=== PATIENT | female | born 1980 | race Caucasian/White ===

== ENCOUNTER → 2022-09-15 10:34 | Outpatient (CLI) | payer OTHER, SELFPAY ==
--- NOTE | ~2022-09-15 | MM_ITS ---
EXAMINATION: MM screening elli BI w estella HISTORY: Screening TECHNIQUE: Craniocaudal and mediolateral oblique 3-D tomosynthesis images were obtained and synthetic 2-D images were generated. CAD analysis was submitted and interpreted. COMPARISON: 07/27/2019 BREAST PARENCHYMAL COMPOSITION: The breasts are extremely dense, which lowers the sensitivity of mamm ography FINDINGS: There is a mass in the upper central aspect of the right breast near the areola. The left b reast is stable without evidence for malignancy. IMPRESSION: 1. Mass in the upper central right breast anteriorly near the nipple. 2. Additional spot compression and mediolateral views with possible follow-up breast ultrasound recom mended. BI-RADS CATEGORY 0 - INCOMPLETE STUDY, NEED ADDITIONAL IMAGING EVALUATION. Reviewed, dictated and finalized at location A. EMS M[facility] IMPRESSION: 1. Mass in the upper central right breast anteriorly near the nipple. 2. Additional spot compression and mediolateral views with possible follow-up b reast ultrasound recommended. BI-RADS CATEGORY 0 - INCOMPLETE STUDY, NEED ADDITIONAL IMAGING EVALUATION.
== END ==
PROVIDERS: PCP Obstetrics & Gynecology; Visit Provider Obstetrics & Gynecology
DX: Z12.31 Encounter for screening mammogram for malignant neoplasm of breast (principal); R92.8 Other abnormal and inconclusive findings on diagnostic imaging of breast
CPT/HCPCS: 77063; 77067

== ENCOUNTER 2022-10-03 07:26 | Outpatient (CLI) | payer OTHER, SELFPAY ==
--- NOTE | ~2022-10-03 | MMUS_ITS ---
EXAMINATION: MM diagnostic elli RT w estella, US breast RT limited HISTORY: Anterior upper central right breast mass reported on September 15, 2022 screening mammogram TECHNIQUE: Additional 3-D tomosynthesis images of were performed and synthetic 2-D images were genera linda. CAD analysis was submitted and interpreted. High resolution breast ultrasound was performed. COMPARISON: September 15, 2022 screening mammogram FINDINGS: MAMMOGRAPHIC FINDINGS: Approximately 5.7 x 9 mm circumscribed mass was suggested anteriorly in the upper mid right breast on screening mammogram (craniocaudal Tomosynthesis image 41/56 this is suggested again on craniocaudal spot Tomosynthesis image 38/49, but the margins are partially obscured by surrounding heterogeneously dense fibroglandular stroma. Additional masses may be obscured by the dense stroma. ULTRASOUND: 11:00 4 cm from nipple: 3 x 5.4 x 4.8 mm sonolucency with through transmission posterior enhancement, consistent with cyst 12:00 subareolar area: Parallel circumscribed hypoechoic 4 x 9 mm lesion with internal vascularity on color flow imaging. There is no posterior shadowing but the margins are mildly irregular and angular . Ultrasound-guided biopsy is recommended. 12:00 subareolar area: 2.2 mm sonolucency consistent with small cyst IMPRESSION: 1. 12:00 subareolar 4 x 9 mm lesion with mildly irregular and angular margins and mild internal vascu larity on color flow imaging; ultrasound-guided biopsy is recommended 2. Ultrasound-guided biopsy is recommended for o'clock subareolar lesion BI-RADS category 4, suspicious findings. Reviewed, dictated and finalized at location A. [facility]NER IMPRESSION: 1. 12:00 subareolar 4 x 9 mm lesion with mildly irregular and angular margins a nd mild internal vascularity on color flow imaging; ultrasound-guided biopsy is recommended 2. Ultrasound-guided biopsy is recommended for o'clock subareolar lesion BI-RADS category 4, suspicious findings.
== END 2022-10-03 07:27 ==
PROVIDERS: PCP Family Medicine; Visit Provider Obstetrics & Gynecology
DX: R92.8 Other abnormal and inconclusive findings on diagnostic imaging of breast (principal); N64.89 Other specified disorders of breast
CPT/HCPCS: 76642; 77061; 77065; G0279